=== PATIENT | male | born 1950 | race Caucasian/White ===

== ENCOUNTER 2016-08-05 11:50 | Inpatient (IN) | payer MEDICARE ==
[~2016-08-05] VITALS: Ht 180.3 cm; Wt 86.6 kg
[~2016-08-05 11:50] MED LIST: ASPI-496 PO; BUME2TAB PO; CARV3.122 PO; CITA20TA9 PO; DIGO125T10 PO; GABA300C10 PO; GEMF600T3 PO; LINA5TAB PO; LOSA25TA5 PO; OMEP40CA6 PO; PIOG30TA4 PO; SPIR25TA3 PO
[2016-08-05] MEDS ORDERED: SODIUM CHLORIDE FLUSH 10ML SYR IVF ONE (12:30)
[2016-08-05 13:17] LABS: ASPARTATE AMINO TRANSFERASE 20 U/L (15-37); BLOOD UREA NITROGEN 25 mg/dL (7-18)
[2016-08-05 13:21] LABS: IS PT STATUS REG ER OR PRE ER? YES
[2016-08-05] MEDS ORDERED: SODIUM CHLORIDE 0.9% 1,000 ML IV ONE (13:35)
[2016-08-05] MEDS ORDERED: NALOXONE 0.4 MG/ML, 1ML ONE (13:47)
[2016-08-05 13:49] LABS: ABG COLLECTION SITE LEFT RADIAL; COLLATERAL CIRCULATION TESTING NORMAL
[2016-08-05] MEDS ORDERED: NALOXONE 0.4 MG/ML, 1ML IVPush ONE (14:00)
[2016-08-05] MEDS ORDERED: BISACODYL 10 MG SUPP PR PRN (14:30)
[2016-08-05] MEDS ORDERED: ONDANSETRON 2MG/ML, 2ML IVP PRN (14:30)
[2016-08-05 14:34] LABS: DAU SCREEN DISCLAIMER
[2016-08-05 16:14] VITALS: BP 129/84
[2016-08-05] MEDS: SODIUM CHLORIDE 0.9% 1,000 ML IV SCH (17:06)
[2016-08-05] MEDS: INSULIN REGULAR 100 UNITS/ML, 3ML VIAL SQ-INSULIN SCH ×2 (17:32→20:50)
[2016-08-05] MEDS: HEPARIN 5,000 UNITS/ML, 1ML SQ SCH (17:32)
[2016-08-05] MEDS: ASPIRIN 81 MG TABLET EC PO SCH (17:47)
[2016-08-05 17:51] VITALS: BP 129/84
[2016-08-05 19:50] VITALS: BP 108/57
[2016-08-06] MEDS: HEPARIN 5,000 UNITS/ML, 1ML SQ SCH ×3 (00:30→17:01)
[2016-08-06 01:23] VITALS: BP 128/88
[2016-08-06] MEDS: SODIUM CHLORIDE 0.9% 1,000 ML IV SCH ×2 (02:00→11:32)
[2016-08-06 06:04] LABS: BLOOD UREA NITROGEN 23 mg/dL (7-18)
[2016-08-06 06:50] VITALS: BP 129/54
[2016-08-06] MEDS ORDERED: MAGNESIUM SULFATE PMX 2GM/50ML 50 ML IV ONE (08:30)
[2016-08-06] MEDS: LOSARTAN 25MG TABLET PO SCH (09:00)
[2016-08-06] MEDS: CARVEDILOL 3.125 MG TABLET PO SCH ×2 (09:00→21:37)
[2016-08-06] MEDS ORDERED: CARVEDILOL 3.125 MG TABLET PO SCH (09:00)
[2016-08-06] MEDS: DIGOXIN 0.125 MG TABLET PO SCH (09:00)
[2016-08-06] MEDS: INSULIN REGULAR 100 UNITS/ML, 3ML VIAL SQ-INSULIN SCH ×4 (09:26→21:41)
[2016-08-06] MEDS ORDERED: SODIUM BICARBONATE 4.2%, 5ML ONE (09:57)
[2016-08-06] MEDS ORDERED: LIDOCAINE 1%, 20ML ONE (09:57)
[2016-08-06 10:27] LABS: IS PT STATUS REG ER OR PRE ER? NO
[2016-08-06 11:34] LABS: CYTOLOGY BODY FLUID RECD INTO PATHOLOGY; CYTOLOGY BODY FLUID SOURCE CEREBROSPINAL FLUID
[2016-08-06 11:46] LABS: GLUCOSE, CSF 91 mg/dL (40-80)
[2016-08-06 13:38] VITALS: BP 117/75
[2016-08-06 19:38] VITALS: BP 104/65
[2016-08-07] MEDS: SODIUM CHLORIDE 0.9% 1,000 ML IV SCH (00:10)
[2016-08-07 02:00] VITALS: BP 147/84
[2016-08-07] MEDS: HEPARIN 5,000 UNITS/ML, 1ML SQ SCH ×3 (04:14→21:44)
[2016-08-07 05:47] LABS: BLOOD UREA NITROGEN 17 mg/dL (7-18)
[2016-08-07 06:28] LABS: HIV 1&2 ANTIBODY SCREEN Nonreactive (Nonreactive); HIV-1 p24 ANTIGEN Nonreactive (Nonreactive)
[2016-08-07 06:31] VITALS: BP 155/88
[2016-08-07] MEDS: INSULIN REGULAR 100 UNITS/ML, 3ML VIAL SQ-INSULIN SCH ×4 (07:00→21:00)
[2016-08-07] MEDS ORDERED: OMNIPAQUE 350 MG/ML, 100ML BOTTLE ONE (08:25)
[2016-08-07 09:10] LABS: HEPATITIS C VIRUS ANTIBODY Reactive (Nonreactive)
[2016-08-07] MEDS: DIGOXIN 0.125 MG TABLET PO SCH (10:30)
[2016-08-07] MEDS: ASPIRIN 81 MG TABLET EC PO SCH (10:30)
[2016-08-07] MEDS: CARVEDILOL 6.25 MG TABLET PO SCH ×2 (10:32→21:44)
[2016-08-07] MEDS: LOSARTAN 25MG TABLET PO SCH (10:32)
[2016-08-07 13:01] VITALS: BP 93/66
[2016-08-07 18:24] VITALS: BP 130/80
[2016-08-08 00:33] VITALS: BP 143/88
[2016-08-08] MEDS: HEPARIN 5,000 UNITS/ML, 1ML SQ SCH ×3 (04:11→20:26)
[2016-08-08 05:29] LABS: BLOOD UREA NITROGEN 19 mg/dL (7-18)
[2016-08-08 06:43] VITALS: BP 107/62
[2016-08-08] MEDS: INSULIN REGULAR 100 UNITS/ML, 3ML VIAL SQ-INSULIN SCH ×4 (07:00→20:27)
[2016-08-08 10:29] VITALS: BP 98/60
[2016-08-08] MEDS: ASPIRIN 81 MG TABLET EC PO SCH (11:00)
[2016-08-08] MEDS: LOSARTAN 25MG TABLET PO SCH (11:00)
[2016-08-08] MEDS: DIGOXIN 0.125 MG TABLET PO SCH (11:00)
[2016-08-08] MEDS: CARVEDILOL 6.25 MG TABLET PO SCH ×2 (11:00→20:28)
[2016-08-08 13:10] VITALS: BP 102/67
[2016-08-08 19:56] VITALS: BP 97/66
[2016-08-08 20:29] VITALS: BP 105/61
[2016-08-08] MEDS ORDERED: CARVEDILOL 6.25 MG TABLET PO SCH (21:00)
[2016-08-09 01:04] VITALS: BP 108/69
[2016-08-09] MEDS: HEPARIN 5,000 UNITS/ML, 1ML SQ SCH ×3 (05:37→21:00)
[2016-08-09] MEDS: INSULIN REGULAR 100 UNITS/ML, 3ML VIAL SQ-INSULIN SCH ×4 (07:00→21:01)
[2016-08-09 07:54] VITALS: BP 101/62
[2016-08-09] MEDS: CARVEDILOL 6.25 MG TABLET PO SCH ×2 (08:12→21:00)
[2016-08-09] MEDS: LOSARTAN 25MG TABLET PO SCH (08:13)
[2016-08-09] MEDS: ASPIRIN 81 MG TABLET EC PO SCH (08:13)
[2016-08-09] MEDS: OMEPRAZOLE 20 MG CAPSULE.DR PO SCH (08:13)
[2016-08-09] MEDS: DIGOXIN 0.125 MG TABLET PO SCH (08:14)
[2016-08-09] MEDS ORDERED: LOSARTAN 25MG TABLET PO SCH (09:00)
[2016-08-09] MEDS ORDERED: PNEUMOCOCCAL 23 VACCINE IM-VACC ONE (11:00)
[2016-08-09 14:05] VITALS: BP 102/63
[2016-08-09 18:06] LABS: HERPES SIMPLEX VIRUS-1 DNA PCR Negative (Negative); HERPES SIMPLEX VIRUS-2 DNA PCR Negative (Negative)
[2016-08-09 19:35] VITALS: BP 114/71
[2016-08-10 01:52] VITALS: BP 103/60
[2016-08-10] MEDS: HEPARIN 5,000 UNITS/ML, 1ML SQ SCH ×3 (05:07→21:46)
[2016-08-10] MEDS: INSULIN REGULAR 100 UNITS/ML, 3ML VIAL SQ-INSULIN SCH ×4 (07:00→21:46)
[2016-08-10 07:21] VITALS: BP 104/66
[2016-08-10] MEDS: OMEPRAZOLE 20 MG CAPSULE.DR PO SCH (09:24)
[2016-08-10] MEDS: ASPIRIN 81 MG TABLET EC PO SCH (09:24)
[2016-08-10] MEDS: DIGOXIN 0.125 MG TABLET PO SCH (09:24)
[2016-08-10] MEDS: LOSARTAN 25MG TABLET PO SCH (09:24)
[2016-08-10] MEDS: CARVEDILOL 6.25 MG TABLET PO SCH ×2 (09:24→21:46)
[2016-08-10 12:05] VITALS: BP 97/58
[2016-08-10 20:07] VITALS: BP 109/66
[2016-08-11 02:16] VITALS: BP 122/62
[2016-08-11] MEDS: HEPARIN 5,000 UNITS/ML, 1ML SQ SCH (05:09)
[2016-08-11 06:35] VITALS: BP 104/66
[2016-08-11] MEDS: INSULIN REGULAR 100 UNITS/ML, 3ML VIAL SQ-INSULIN SCH ×2 (07:00→12:13)
[2016-08-11] MEDS: ASPIRIN 81 MG TABLET EC PO SCH (09:08)
[2016-08-11] MEDS: LOSARTAN 25MG TABLET PO SCH (09:09)
[2016-08-11] MEDS: CARVEDILOL 6.25 MG TABLET PO SCH (09:09)
[2016-08-11 09:10] VITALS: BP 94/66
[2016-08-11] MEDS: OMEPRAZOLE 20 MG CAPSULE.DR PO SCH ×2 (09:10→10:10)
[2016-08-11] MEDS: DIGOXIN 0.125 MG TABLET PO SCH (09:10)
== END 2016-08-11 13:27 | DRG 682 ==
LOC: ED 13:30 → EDIP 14:29 → 4WST 16:00 → 4EST 08-06 03:50
PROC: 0T9B70Z Drainage of Bladder with Drainage Device, Via Natural or Artificial Opening (ICD-10-PCS; 2016-08-05)
PROC: 009U3ZX Drainage of Spinal Canal, Percutaneous Approach, Diagnostic (ICD-10-PCS; principal; 2016-08-06)
PROC: B01B1ZZ Fluoroscopy of Spinal Cord using Low Osmolar Contrast (ICD-10-PCS; 2016-08-06)
DX: N17.0 Acute kidney failure with tubular necrosis (principal); G93.40 Encephalopathy, unspecified; I48.92 Unspecified atrial flutter; E87.2 Acidosis; I50.22 Chronic systolic (congestive) heart failure; I13.0 Hypertensive heart and chronic kidney disease with heart failure and stage 1 through stage 4 chronic kidney disease, or unspecified chronic kidney disease; I42.6 Alcoholic cardiomyopathy; F10.20 Alcohol dependence, uncomplicated; E11.22 Type 2 diabetes mellitus with diabetic chronic kidney disease; E11.65 Type 2 diabetes mellitus with hyperglycemia; E78.00 Pure hypercholesterolemia, unspecified; E78.5 Hyperlipidemia, unspecified; E86.0 Dehydration; F10.21 Alcohol dependence, in remission; I48.2 Chronic atrial fibrillation; I35.9 Nonrheumatic aortic valve disorder, unspecified; I25.10 Atherosclerotic heart disease of native coronary artery without angina pectoris; N18.3 Chronic kidney disease, stage 3 (moderate); N40.0 Benign prostatic hyperplasia without lower urinary tract symptoms; Z83.3 Family history of diabetes mellitus; Z85.820 Personal history of malignant melanoma of skin; Z87.891 Personal history of nicotine dependence; Z95.2 Presence of prosthetic heart valve; Z99.3 Dependence on wheelchair
CPT/HCPCS: 36415; 36600; 62270; 70450; 70470; 71010; 80048; 80053; 80074; 80162; 80307; 81003; 82140; 82550; 82607; 82746; 82803; 82945; 82962; 83036; 83605; 83880; 84145; 84157; 84439; 84443; 84484; 85025; 85610; 85730; 86592; 86703; 87040; 87070; 87075; 87102; 87205; 87521; 87529; 87899; 88108; 89051; 90732; 93005; 93306; 93880; 96361; 96374; J1644; J1815; J2310; J2405; J3490; Q9967; G0435; J3475; J7030

== ENCOUNTER → 2016-11-25 | Outpatient (CLI) | payer MEDICARE | END | disposition home or self-care (01) | LOC: CFH 09:37 | PROVIDERS: ATTEND Nurse Practitioner Family | DX: I12.9 Hypertensive chronic kidney disease with stage 1 through stage 4 chronic kidney disease, or unspecified chronic kidney disease (principal); N18.3 Chronic kidney disease, stage 3 (moderate); I48.2 Chronic atrial fibrillation | CPT/HCPCS: 76770 ==

== ENCOUNTER 2018-08-24 15:39 | Outpatient (CLI) | payer MEDICARE ==
[~2018-08-24 15:39] MED LIST changes: -GEMF600T3 PO; +GEMF600T8 PO; +LOSA25TA25 PO; -LOSA25TA5 PO; -SPIR25TA3 PO; +SPIR25TA5 PO
[2018-08-24 16:19] LABS: ANION GAP 8 mmol/L (5-15); CHLORIDE 108 mmol/L (98-107); CREATININE 1.83 mg/dL (0.7-1.3)
== END 2018-08-24 23:59 | disposition home or self-care (01) ==
LOC: LAB 15:39
PROVIDERS: ATTEND Nurse Practitioner Family
DX: I42.8 Other cardiomyopathies (principal)
CPT/HCPCS: 36415; 80048

== ENCOUNTER → 2018-09-15 | Outpatient (CLI) | payer MEDICARE ==
[2018-09-15 13:01] LABS: ALBUMIN 4.7 g/dL (3.4-5.0)
[2018-09-15 13:02] LABS: ANION GAP 10 mmol/L (5-15); CALCIUM 9.9 mg/dL (8.5-10.1); CHLORIDE 105 mmol/L (98-107); CREATININE 1.98 mg/dL (0.7-1.3)
== END | disposition home or self-care (01) ==
LOC: LAB 12:17
PROVIDERS: ATTEND Internal Medicine Nephrology
DX: N17.9 Acute kidney failure, unspecified (principal); N18.3 Chronic kidney disease, stage 3 (moderate); I42.8 Other cardiomyopathies
CPT/HCPCS: 36415; 80048; 82040; 82784; 83883; 83970; 84100; 84155; 84165; 86334

== ENCOUNTER 2019-02-15 16:23 | Outpatient (CLI) | payer MEDICARE ==
[~2019-02-15 16:23] MED LIST changes: -BUME2TAB PO; +BUME2TAB3 PO
[2019-02-15 17:05] LABS: ANION GAP 6 mmol/L (5-15); CALCIUM 9.1 mg/dL (8.5-10.1); CHLORIDE 109 mmol/L (98-107); CREATININE 1.59 mg/dL (0.7-1.3)
== END 2019-02-15 23:59 | disposition home or self-care (01) ==
LOC: LAB 16:23
PROVIDERS: ATTEND Nurse Practitioner Family
DX: I42.8 Other cardiomyopathies (principal); N17.9 Acute kidney failure, unspecified
CPT/HCPCS: 36415; 80048

== ENCOUNTER → 2019-04-28 | Outpatient (CLI) | payer MEDICARE ==
[~2019-04-28] MED LIST changes: +OMEP40CA42 PO; -OMEP40CA6 PO
[2019-04-28 11:57] LABS: ANION GAP 7 mmol/L (5-15); CALCIUM 8.8 mg/dL (8.5-10.1); CHLORIDE 105 mmol/L (98-107); CREATININE 1.38 mg/dL (0.7-1.3)
== END | disposition home or self-care (01) ==
LOC: LAB 11:22
PROVIDERS: ATTEND Nurse Practitioner Family
DX: I42.8 Other cardiomyopathies (principal)
CPT/HCPCS: 36415; 80048

== ENCOUNTER → 2019-06-13 | Outpatient (CLI) | payer MEDICARE ==
[~2019-06-13] MED LIST changes: -PIOG30TA4 PO; +PIOG30TA68 PO
[2019-06-13 08:31] LABS: BASOPHILS # (AUTO) 0.05 x10^3/uL (0-0.1); BASOPHILS % (AUTO) 1 % (0-1); EOSINOPHILS # (AUTO) 0.15 x10^3/uL (0-0.4); EOSINOPHILS % (AUTO) 2 % (1-7); LYMPHOCYTES # (AUTO) 1.41 x10^3/uL (1-3.4); LYMPHOCYTES % (AUTO) 20 % (22-44); MD NO; MEAN CORPUSCULAR HEMOGLOBIN 31.6 pg (27.5-34.5); MEAN CORPUSCULAR HGB CONC 33.2 g/dL (33.2-36.2); MEAN CORPUSCULAR VOLUME 95.2 fL (81-97); MEAN PLATELET VOLUME 6.7 fL (7.4-10.4); MONOCYTES # (AUTO) 0.52 x10^3/uL (0.2-0.8); MONOCYTES % (AUTO) 7 % (2-9); NEUTROPHILS # (AUTO) 4.91 x10^3/uL (1.8-6.8); NEUTROPHILS % (AUTO) 70 % (42-75); PLATELET COUNT 189 x10^3/uL (130-400); RED BLOOD COUNT 5.21 x10^6/uL (4.38-5.82)
[2019-06-13 08:43] LABS: ALANINE AMINOTRANSFERASE 15 U/L (12-78); ALBUMIN 3.3 g/dL (3.4-5.0); ANION GAP 6 mmol/L (5-15); CALCIUM 8.5 mg/dL (8.5-10.1); CHLORIDE 107 mmol/L (98-107)
[2019-06-13 08:46] LABS: ALKALINE PHOSPHATASE 95 U/L (45-117); BILIRUBIN,TOTAL 0.7 mg/dL (0.2-1.0); CHOL/HDL RATIO 3.3; CHOLESTEROL, TOTAL 180 mg/dL (140-239); CREATININE 1.38 mg/dL (0.7-1.3); HDL CHOL % 30 % (26-37); HDL CHOLESTEROL (DIRECT) 54 mg/dL (40-60); LDL CHOLESTEROL,CALCULATED 112 mg/dL (54-169); LDL/HDL RATIO 2.1 (0.5-3.0); TRIGLYCERIDES 68 mg/dL (50-200); VLDL CHOLESTEROL 14 mg/dL (0-25)
== END | disposition home or self-care (01) ==
LOC: LAB 08:11
PROVIDERS: ATTEND Nurse Practitioner Family
DX: I42.8 Other cardiomyopathies (principal); I48.4 Atypical atrial flutter; I48.19 Other persistent atrial fibrillation; I47.2 Ventricular tachycardia; I48.21 Permanent atrial fibrillation; I48.0 Paroxysmal atrial fibrillation; I48.20 Chronic atrial fibrillation, unspecified; E11.9 Type 2 diabetes mellitus without complications
CPT/HCPCS: 36415; 80053; 80061; 80162; 82043; 82570; 83036; 83721; 85025

== ENCOUNTER 2019-07-18 12:20 | Outpatient (CLI) | payer MEDICARE, MEDICAID ==
[2019-07-18 12:48] LABS: INTERNATIONAL NORMALIZED RATIO 1.05 (0.93-1.1); PROTHROMBIN TIME 11.1 Seconds (9.6-11.5)
== END 2019-07-18 23:59 | disposition home or self-care (01) ==
LOC: LAB 12:20
PROVIDERS: ATTEND Internal Medicine
DX: I48.19 Other persistent atrial fibrillation (principal)
CPT/HCPCS: 36415; 85610

== ENCOUNTER → 2019-07-21 | Outpatient (CLI) | payer MEDICARE, MEDICAID ==
[2019-07-21 15:48] LABS: INTERNATIONAL NORMALIZED RATIO 1.35 (0.93-1.1); PROTHROMBIN TIME 14.4 Seconds (9.6-11.5)
== END | disposition home or self-care (01) ==
LOC: LAB 15:19
PROVIDERS: ATTEND Internal Medicine
DX: I48.19 Other persistent atrial fibrillation (principal)
CPT/HCPCS: 36415; 85610

== ENCOUNTER → 2019-08-01 | Outpatient (CLI) | payer MEDICAID, MEDICARE ==
[2019-08-01 15:26] LABS: INTERNATIONAL NORMALIZED RATIO 1.34 (0.93-1.1); PROTHROMBIN TIME 14.2 Seconds (9.6-11.5)
== END | disposition home or self-care (01) ==
LOC: LAB 14:44
PROVIDERS: ATTEND Internal Medicine
DX: I48.19 Other persistent atrial fibrillation (principal)
CPT/HCPCS: 36415; 85610

== ENCOUNTER → 2019-08-08 | Outpatient (CLI) | payer MEDICARE, MEDICAID ==
[2019-08-08 13:08] LABS: INTERNATIONAL NORMALIZED RATIO 2.18 (0.93-1.1); PROTHROMBIN TIME 23.3 Seconds (9.6-11.5)
== END | disposition home or self-care (01) ==
LOC: CFH 12:43
PROVIDERS: ATTEND Internal Medicine
DX: I48.0 Paroxysmal atrial fibrillation (principal); I47.2 Ventricular tachycardia; I48.4 Atypical atrial flutter; I48.21 Permanent atrial fibrillation; I48.20 Chronic atrial fibrillation, unspecified
CPT/HCPCS: 36415; 80162; 85610

== ENCOUNTER → 2019-09-03 | Outpatient (CLI) | payer MEDICARE, MEDICAID ==
[2019-09-03 09:27] LABS: INTERNATIONAL NORMALIZED RATIO 1.87 (0.93-1.1); PROTHROMBIN TIME 19.9 Seconds (9.6-11.5)
== END | disposition home or self-care (01) ==
LOC: LAB 08:52
PROVIDERS: ATTEND Internal Medicine
DX: I48.19 Other persistent atrial fibrillation (principal)
CPT/HCPCS: 36415; 85610

== ENCOUNTER → 2019-09-23 | Outpatient (CLI) | payer MEDICARE, MEDICAID ==
[2019-09-23 11:24] LABS: INTERNATIONAL NORMALIZED RATIO 1.32 (0.93-1.1)
== END | disposition home or self-care (01) ==
LOC: LAB 11:01
PROVIDERS: ATTEND Internal Medicine
DX: I48.19 Other persistent atrial fibrillation (principal)
CPT/HCPCS: 36415; 85610

== ENCOUNTER → 2019-11-23 | Outpatient (CLI) | payer MEDICARE, MEDICAID ==
[2019-11-23 10:48] LABS: INTERNATIONAL NORMALIZED RATIO 1.52 (0.93-1.1); PROTHROMBIN TIME 16.2 Seconds (9.6-11.5)
== END | disposition home or self-care (01) ==
LOC: LAB 10:18
PROVIDERS: ATTEND Internal Medicine
DX: I48.19 Other persistent atrial fibrillation (principal)
CPT/HCPCS: 36415; 85610

== ENCOUNTER → 2019-11-24 | Outpatient (CLI) | payer MEDICARE, MEDICAID ==
[2019-11-24 11:51] LABS: BASOPHILS # (AUTO) 0.05 x10^3/uL (0-0.1); BASOPHILS % (AUTO) 1 % (0-1); EOSINOPHILS # (AUTO) 0.11 x10^3/uL (0-0.4); EOSINOPHILS % (AUTO) 2 % (1-7); LYMPHOCYTES # (AUTO) 1.44 x10^3/uL (1-3.4); LYMPHOCYTES % (AUTO) 19 % (22-44); MD NO; MEAN CORPUSCULAR HEMOGLOBIN 30.8 pg (27.5-34.5); MEAN CORPUSCULAR HGB CONC 33.7 g/dL (33.2-36.2); MEAN CORPUSCULAR VOLUME 91.4 fL (81-97); MONOCYTES # (AUTO) 0.57 x10^3/uL (0.2-0.8); MONOCYTES % (AUTO) 8 % (2-9); NEUTROPHILS # (AUTO) 5.34 x10^3/uL (1.8-6.8); NEUTROPHILS % (AUTO) 71 % (42-75); PLATELET COUNT 157 x10^3/uL (130-400); RED BLOOD COUNT 5.67 x10^6/uL (4.38-5.82); RED CELL DISTRIBUTION WIDTH 13.6 % (9.4-14.8)
[2019-11-24 11:56] LABS: CALCIUM 9.1 mg/dL (8.5-10.1)
[2019-11-24 12:07] LABS: ALANINE AMINOTRANSFERASE 15 U/L (12-78); ALBUMIN 3.8 g/dL (3.4-5.0); ANION GAP 9 mmol/L (5-15); CHLORIDE 108 mmol/L (98-107); CREATININE 1.44 mg/dL (0.7-1.3)
[2019-11-24 12:10] LABS: ALKALINE PHOSPHATASE 89 U/L (45-117); BILIRUBIN,TOTAL 0.8 mg/dL (0.2-1.0); TOTAL PROTEIN 7.2 g/dL (6.4-8.2)
[2019-11-24 12:17] LABS: MICROSCOPIC NOT IND
[2019-11-24 12:26] LABS: CREATININE,URINE RANDOM 98.8 mg/dL
== END | disposition home or self-care (01) ==
LOC: LAB 11:28
PROVIDERS: ATTEND Nurse Practitioner
DX: I12.9 Hypertensive chronic kidney disease with stage 1 through stage 4 chronic kidney disease, or unspecified chronic kidney disease (principal); N18.3 Chronic kidney disease, stage 3 (moderate); E55.9 Vitamin D deficiency, unspecified; I48.91 Unspecified atrial fibrillation; Z86.39 Personal history of other endocrine, nutritional and metabolic disease
CPT/HCPCS: 36415; 80053; 81003; 82306; 82310; 82570; 83036; 83970; 84156; 85025

== ENCOUNTER → 2019-12-01 | Outpatient (CLI) | payer MEDICARE, MEDICAID ==
[2019-12-01 12:21] LABS: INTERNATIONAL NORMALIZED RATIO 1.59 (0.93-1.1); PROTHROMBIN TIME 16.9 Seconds (9.6-11.5)
== END | disposition home or self-care (01) ==
LOC: LAB 12:00
PROVIDERS: ATTEND Internal Medicine
DX: I48.19 Other persistent atrial fibrillation (principal)
CPT/HCPCS: 36415; 85610

== ENCOUNTER → 2019-12-08 | Outpatient (CLI) | payer MEDICARE, MEDICAID ==
[2019-12-08 14:36] LABS: INTERNATIONAL NORMALIZED RATIO 1.88 (0.93-1.1); PROTHROMBIN TIME 19.5 Seconds (9.6-11.5)
== END | disposition home or self-care (01) ==
LOC: LAB 14:12
PROVIDERS: ATTEND Internal Medicine
DX: I48.19 Other persistent atrial fibrillation (principal)
CPT/HCPCS: 36415; 85610

== ENCOUNTER → 2019-12-13 | Outpatient (CLI) | payer MEDICARE, MEDICAID ==
[2019-12-13 12:51] LABS: INTERNATIONAL NORMALIZED RATIO 2.18 (0.93-1.1); PROTHROMBIN TIME 22.6 Seconds (9.6-11.5)
== END | disposition home or self-care (01) ==
LOC: LAB 12:30
PROVIDERS: ATTEND Internal Medicine
DX: I48.19 Other persistent atrial fibrillation (principal)
CPT/HCPCS: 36415; 85610

== ENCOUNTER → 2019-12-21 | Outpatient (CLI) | payer MEDICARE, MEDICAID ==
[2019-12-21 12:28] LABS: INTERNATIONAL NORMALIZED RATIO 2.61 (0.93-1.1); PROTHROMBIN TIME 27.1 Seconds (9.6-11.5)
== END | disposition home or self-care (01) ==
LOC: LAB 12:08
PROVIDERS: ATTEND Internal Medicine
DX: I48.19 Other persistent atrial fibrillation (principal)
CPT/HCPCS: 36415; 85610

== ENCOUNTER → 2020-01-04 | Outpatient (CLI) | payer MEDICARE, MEDICAID ==
[2020-01-04 12:16] LABS: INTERNATIONAL NORMALIZED RATIO 3.35 (0.93-1.1); PROTHROMBIN TIME 34.9 Seconds (9.6-11.5)
== END | disposition home or self-care (01) ==
LOC: LAB 11:43
PROVIDERS: ATTEND Internal Medicine
DX: I48.19 Other persistent atrial fibrillation (principal)
CPT/HCPCS: 36415; 85610

== ENCOUNTER → 2020-01-13 | Outpatient (CLI) | payer MEDICARE, MEDICAID ==
[2020-01-13 12:31] LABS: INTERNATIONAL NORMALIZED RATIO 3.72 (0.93-1.1); PROTHROMBIN TIME 38.8 Seconds (9.6-11.5)
== END | disposition home or self-care (01) ==
LOC: LAB 12:04
PROVIDERS: ATTEND Internal Medicine
DX: I48.19 Other persistent atrial fibrillation (principal)
CPT/HCPCS: 36415; 85610

== ENCOUNTER 2020-01-19 12:16 | Inpatient (IN) | payer MEDICAID, MEDICARE ==
[~2020-01-19] VITALS: Ht 175.3 cm; Wt 65.0 kg
[~2020-01-19 12:16] MED LIST changes: -DULA1.5P SQ; -ESOM40CA48 PO; -METO-93 PO; -WARF2TAB99 PO
--- NOTE | 2020-01-19 12:30 | NUR ---
PT TO ROOM FROM TRIAGE. DR BLAKE AT BEDSIDE. PT CAME TO [facility] FOR LAB DRAW FOR COUMADIN. "I FELT BAD COMING HERE AND I THREW UP, I WAS SOB COMING HERE" PT PRESENTED TO TRIAGE, RAPID HR.
[2020-01-19] MEDS ORDERED: DILTIAZEM 5 MG/ML, 5ML ONE (12:33)
[2020-01-19] MEDS ORDERED: MIDAZOLAM 1 MG/ML, 2ML ONE (12:40)
[2020-01-19] MEDS ORDERED: DILTIAZEM 5 MG/ML, 5ML IVPush ONE (12:47)
--- NOTE | 2020-01-19 12:56 | NUR ---
PORTABLE CXR COMPLETED.
--- NOTE | 2020-01-19 12:58 | NUR ---
1233 CAROTID MASSAGE PERFOMED BY DR HARRIS. HR DECREASED SOME. 1236 6MG ADENOSIN GIVEN. NO CHANGE IN HR OF 210. 1238 12 MG ADENOSIN GIVEN. SLOWED DOWN 155 AND INCREASED TO 210. 1243 PT GIVEN 20 MG DILTIAZEM OVER 2 MIN. HR 176 156/90. HR DECREASED TO 100'S.
[2020-01-19] MEDS ORDERED: ADENOSINE 6 MG/2 ML IVPush ONE ×2 (13:00)
[2020-01-19] MEDS ORDERED: SODIUM CHLORIDE FLUSH 10ML SYR IVF ONE (13:00)
--- NOTE | 2020-01-19 13:08 | NUR ---
REPEAT EKG COMPLETED
[2020-01-19 13:10] LABS: ALBUMIN 3.8 g/dL (3.4-5.0); ANION GAP 13 mmol/L (5-15); CALCIUM 9.6 mg/dL (8.5-10.1); CHLORIDE 102 mmol/L (98-107); CREATININE 1.72 mg/dL (0.7-1.3)
[2020-01-19 13:13] LABS: TROPONIN I 0.017 ng/mL (0.000-0.045)
[2020-01-19] MEDS ORDERED: DULA1.5P SQ (13:23)
--- NOTE | 2020-01-19 13:25 | NUR ---
MED REC PARTIALLY COMPLETED. PT CONT TO DENY CHEST PAIN. DENIES SOB AT THIS TIME. SR WITH FREQUENT PVC'S PER MONITOR NOTED. WAITING FOR TEST RESULTS.
[2020-01-19] MEDS ORDERED: SODIUM CHLORIDE 0.9% 1,000ML IVBOLUS ONE (13:30)
[2020-01-19 13:33] LABS: MEAN CORPUSCULAR HEMOGLOBIN 30.3 pg (27.5-34.5); MEAN CORPUSCULAR HGB CONC 32.9 g/dL (33.2-36.2); MEAN PLATELET VOLUME 7.7 fL (7.4-10.4); PLATELET COUNT 166 x10^3/uL (130-400); RED BLOOD COUNT 6.35 x10^6/uL (4.38-5.82); RED CELL DISTRIBUTION WIDTH 13.6 % (9.4-14.8)
[2020-01-19 14:05] LABS: MD YES
[2020-01-19 14:06] LABS: <PLATELET ESTIMATE> ADEQUATE; <PLT MORPHOLOGY> NORMAL PLT MORPH; <RBC MORPHOLOGY> NORMAL; LYMPH#(MANUAL) 1.85 x10^3/uL (1-3.4); LYMPHS% (MANUAL) 17 % (22-44); MONOS#(MANUAL) 1.09 x10^3/uL (0.3-2.7); MONOS% (MANUAL) 10 % (2-9); SEG#(MANUAL) 7.96 x10^3/uL (1.8-6.8); SEGS% (MANUAL) 73 % (42-75)
--- NOTE | 2020-01-19 14:20 | NUR ---
BREAK RN: PT RESTING IN ROOM. 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 AFIB NOTED. VS STABLE. CALL LIGHT IN PLACE. WILL CONTINUE TO MONITOR WHILE PRIMARY RN IS ON BREAK.
[2020-01-19 14:30] LABS: INTERNATIONAL NORMALIZED RATIO 1.75 (0.93-1.1); PROTHROMBIN TIME 18.1 Seconds (9.6-11.5)
[2020-01-19] MEDS ORDERED: SODIUM CHLORIDE FLUSH 10ML SYR IVF PRN (14:30)
[2020-01-19] MEDS ORDERED: ACETAMINOPHEN 325 MG TABLET PO PRN (14:30)
[2020-01-19] MEDS ORDERED: DILTIAZEM 125 MG in SODIUM CHLORIDE 0.9% 100 ML IV SCH (14:30)
[2020-01-19] MEDS ORDERED: ONDANSETRON 2MG/ML, 2ML IVPush PRN (14:30)
--- NOTE | 2020-01-19 14:57 | NUR ---
REPORT CALLED TO KUMAR CLEMENTE. POC DISCUSSED. PT TO BE TRANSPORTED TO [facility] VIA [facility].
[2020-01-19 15:00] LABS: TROPONIN I 0.038 ng/mL (0.000-0.045)
[2020-01-19 15:21] VITALS: BP 135/83
[2020-01-19] MEDS ORDERED: MAGNESIUM SULFATE PMX 2GM/50ML 50 ML ONE (15:43)
[2020-01-19] MEDS: DILTIAZEM 125 MG in SODIUM CHLORIDE 0.9% 100 ML IV SCH (15:48)
[2020-01-19] MEDS ORDERED: GABAPENTIN 300 MG CAPSULE PO PRN (16:00)
[2020-01-19] MEDS ORDERED: DEXTROSE 4 GM TAB.CHEW PO PRN (16:00)
[2020-01-19] MEDS ORDERED: GLUCAGON 1 MG IM PRN (16:00)
[2020-01-19] MEDS ORDERED: MAGNESIUM SULFATE PMX 2GM/50ML 50 ML IV ONE (16:00)
[2020-01-19] MEDS: INSULIN LISPRO 100 UNITS/ML, PEN SQ-INSULIN SCH ×2 (16:00→21:16)
[2020-01-19] MEDS ORDERED: DEXTROSE 50%, 50ML SYRINGE IVPush PRN (16:00)
[2020-01-19] MEDS ORDERED: WARF2TAB99 PO (16:45)
[2020-01-19] MEDS ORDERED: ESOM40CA48 PO (16:45)
[2020-01-19] MEDS ORDERED: WARFARIN 2 MG TABLET PO-COUM ONE (18:00)
[2020-01-19 19:12] VITALS: BP 115/69
[2020-01-19] MEDS: SODIUM CHLORIDE FLUSH 10ML SYR IVF SCH (20:27)
[2020-01-19 20:49] LABS: TROPONIN I 0.063 ng/mL (0.000-0.045)
[2020-01-20] MEDS: CALCIUM CARBONATE 500 MG TAB.CHEW PO PRN ×3 (00:55→06:10)
[2020-01-20 00:56] VITALS: BP 166/95
[2020-01-20] MEDS: DILTIAZEM 125 MG in SODIUM CHLORIDE 0.9% 100 ML IV SCH ×2 (02:57→14:45)
[2020-01-20 05:32] LABS: BASOPHILS # (AUTO) 0.05 x10^3/uL (0-0.1); BASOPHILS % (AUTO) 1 % (0-1); EOSINOPHILS # (AUTO) 0.11 x10^3/uL (0-0.4); EOSINOPHILS % (AUTO) 1 % (1-7); LYMPHOCYTES # (AUTO) 1.15 x10^3/uL (1-3.4); LYMPHOCYTES % (AUTO) 15 % (22-44); MEAN CORPUSCULAR HEMOGLOBIN 30.3 pg (27.5-34.5); MEAN CORPUSCULAR HGB CONC 32.7 g/dL (33.2-36.2); MEAN PLATELET VOLUME 7.2 fL (7.4-10.4); MONOCYTES # (AUTO) 0.57 x10^3/uL (0.2-0.8); MONOCYTES % (AUTO) 7 % (2-9); NEUTROPHILS # (AUTO) 5.85 x10^3/uL (1.8-6.8); NEUTROPHILS % (AUTO) 76 % (42-75); PLATELET COUNT 131 x10^3/uL (130-400); RED BLOOD COUNT 5.74 x10^6/uL (4.38-5.82); RED CELL DISTRIBUTION WIDTH 14.1 % (9.4-14.8)
[2020-01-20 05:36] LABS: ALBUMIN 3.2 g/dL (3.4-5.0); CHLORIDE 104 mmol/L (98-107)
[2020-01-20 05:51] LABS: ALANINE AMINOTRANSFERASE 12 U/L (12-78); ALKALINE PHOSPHATASE 81 U/L (45-117); ANION GAP 11 mmol/L (5-15); CREATININE 1.24 mg/dL (0.7-1.3); TOTAL PROTEIN 6.7 g/dL (6.4-8.2)
[2020-01-20 05:56] LABS: INTERNATIONAL NORMALIZED RATIO 1.49 (0.93-1.1); PROTHROMBIN TIME 15.4 Seconds (9.6-11.5)
[2020-01-20 07:00] LABS: MD NO
[2020-01-20] MEDS: INSULIN LISPRO 100 UNITS/ML, PEN SQ-INSULIN SCH ×4 (08:14→22:01)
[2020-01-20] MEDS: SODIUM CHLORIDE FLUSH 10ML SYR IVF SCH ×2 (08:15→20:43)
[2020-01-20 10:03] VITALS: BP 164/103
[2020-01-20] MEDS: PROMETHAZINE 25 MG/ML, 1ML IM PRN ×2 (10:15→20:48)
[2020-01-20] MEDS ORDERED: METOCLOPRAMIDE 5 MG/ML, 2ML IVPush PRN (11:00)
[2020-01-20 11:13] LABS: CHOL/HDL RATIO 3.3; LDL/HDL RATIO 1.7 (0.5-3.0)
[2020-01-20] MEDS: OMEPRAZOLE 20 MG CAPSULE.DR PO SCH ×2 (11:17→22:01)
[2020-01-20] MEDS: LOSARTAN 25MG TABLET PO SCH (11:18)
[2020-01-20 11:37] VITALS: BP 139/88
[2020-01-20 14:10] VITALS: BP 149/81
[2020-01-20 17:15] VITALS: BP 132/80
[2020-01-20] MEDS: METOPROLOL TARTRATE 25 MG TAB PO SCH (17:16)
[2020-01-20] MEDS ORDERED: WARFARIN 2 MG TABLET PO-COUM ONE (18:00)
[2020-01-20 19:08] VITALS: BP 142/69
[2020-01-21 01:11] VITALS: BP 119/64
[2020-01-21] MEDS: DILTIAZEM 125 MG in SODIUM CHLORIDE 0.9% 100 ML IV SCH (04:13)
[2020-01-21] MEDS: METOPROLOL TARTRATE 25 MG TAB PO SCH ×2 (05:22→18:09)
[2020-01-21 05:24] VITALS: BP 129/61
[2020-01-21 05:56] LABS: INTERNATIONAL NORMALIZED RATIO 1.96 (0.93-1.1); PROTHROMBIN TIME 20.3 Seconds (9.6-11.5)
[2020-01-21] MEDS: OMEPRAZOLE 20 MG CAPSULE.DR PO SCH (06:40)
[2020-01-21 06:56] VITALS: BP 103/58
[2020-01-21] MEDS: INSULIN LISPRO 100 UNITS/ML, PEN SQ-INSULIN SCH ×4 (09:11→22:49)
[2020-01-21] MEDS: SODIUM CHLORIDE FLUSH 10ML SYR IVF SCH ×2 (09:12→22:50)
[2020-01-21] MEDS: LOSARTAN 25MG TABLET PO SCH (09:13)
[2020-01-21 12:53] VITALS: BP 132/87
[2020-01-21] MEDS: PROMETHAZINE 25 MG/ML, 1ML IM PRN (16:10)
[2020-01-21] MEDS ORDERED: WARFARIN 2.5 MG TABLET PO-COUM ONE (18:00)
[2020-01-21 20:28] VITALS: BP 115/63
[2020-01-22 01:39] VITALS: BP 129/80
[2020-01-22 05:49] LABS: INTERNATIONAL NORMALIZED RATIO 1.94 (0.93-1.1); PROTHROMBIN TIME 20.1 Seconds (9.6-11.5)
[2020-01-22] MEDS: METOPROLOL TARTRATE 25 MG TAB PO SCH (05:58)
[2020-01-22 07:00] VITALS: BP 100/61
[2020-01-22 08:31] LABS: MEAN CORPUSCULAR HEMOGLOBIN 30.1 pg (27.5-34.5); MEAN CORPUSCULAR HGB CONC 32.2 g/dL (33.2-36.2); MEAN PLATELET VOLUME 7.7 fL (7.4-10.4); PLATELET COUNT 149 x10^3/uL (130-400); RED CELL DISTRIBUTION WIDTH 14.3 % (9.4-14.8)
[2020-01-22 08:42] LABS: ALANINE AMINOTRANSFERASE 14 U/L (12-78); ALBUMIN 2.9 g/dL (3.4-5.0); ANION GAP 6 mmol/L (5-15); CALCIUM 8.8 mg/dL (8.5-10.1); CHLORIDE 102 mmol/L (98-107); CREATININE 1.28 mg/dL (0.7-1.3)
[2020-01-22 08:44] LABS: ALKALINE PHOSPHATASE 82 U/L (45-117); TOTAL PROTEIN 6.4 g/dL (6.4-8.2)
[2020-01-22 08:59] LABS: BASOPHILS # (AUTO) 0.04 x10^3/uL (0-0.1); BASOPHILS % (AUTO) 0 % (0-1); EOSINOPHILS # (AUTO) 0.25 x10^3/uL (0-0.4); EOSINOPHILS % (AUTO) 2 % (1-7); LYMPHOCYTES # (AUTO) 1.24 x10^3/uL (1-3.4); LYMPHOCYTES % (AUTO) 10 % (22-44); MD SCAN; MONOCYTES # (AUTO) 0.76 x10^3/uL (0.2-0.8); MONOCYTES % (AUTO) 6 % (2-9); NEUTROPHILS # (AUTO) 9.81 x10^3/uL (1.8-6.8); NEUTROPHILS % (AUTO) 81 % (42-75)
[2020-01-22] MEDS: SODIUM CHLORIDE FLUSH 10ML SYR IVF SCH (08:59)
[2020-01-22] MEDS: INSULIN LISPRO 100 UNITS/ML, PEN SQ-INSULIN SCH ×3 (08:59→17:55)
[2020-01-22] MEDS ORDERED: OMEPRAZOLE 20 MG CAPSULE.DR PO SCH (09:00)
[2020-01-22] MEDS: LOSARTAN 25MG TABLET PO SCH (09:00)
[2020-01-22 12:18] VITALS: BP 131/88
[2020-01-22 12:37] LABS: MICROSCOPIC AUTO
[2020-01-22] MEDS ORDERED: METO-93 PO (14:18)
[2020-01-22] MEDS ORDERED: WARFARIN 3 MG TABLET PO-COUM ONE (18:00)
[2020-01-23] MEDS ORDERED: METOPROLOL SUCCINATE 50 MG TAB.ER.24H PO SCH (06:00)
[2020-01-23] MEDS ORDERED: SPIRONOLACTONE 25 MG TABLET PO SCH (09:00)
== END 2020-01-22 18:16 | disposition home health service (06) | DRG 308 ==
LOC: ED 12:43 → SUATTDRO 14:21 → EDIP 14:23 → 5SO 15:09
PROVIDERS: ADMIT Internal Medicine; ATTEND Internal Medicine
PROC: 5A2204Z Restoration of Cardiac Rhythm, Single (ICD-10-PCS; principal; 2020-01-19)
DX: I47.1 Supraventricular tachycardia (principal); I50.43 Acute on chronic combined systolic (congestive) and diastolic (congestive) heart failure; E43 Unspecified severe protein-calorie malnutrition; I13.0 Hypertensive heart and chronic kidney disease with heart failure and stage 1 through stage 4 chronic kidney disease, or unspecified chronic kidney disease; D68.69 Other thrombophilia; I42.6 Alcoholic cardiomyopathy; E51.2 Wernicke's encephalopathy; I48.20 Chronic atrial fibrillation, unspecified; I48.92 Unspecified atrial flutter; J44.9 Chronic obstructive pulmonary disease, unspecified; N18.3 Chronic kidney disease, stage 3 (moderate); D75.1 Secondary polycythemia; E11.22 Type 2 diabetes mellitus with diabetic chronic kidney disease; E11.65 Type 2 diabetes mellitus with hyperglycemia; E78.00 Pure hypercholesterolemia, unspecified; E78.5 Hyperlipidemia, unspecified; E87.5 Hyperkalemia; F10.20 Alcohol dependence, uncomplicated; F12.90 Cannabis use, unspecified, uncomplicated; F17.210 Nicotine dependence, cigarettes, uncomplicated; F32.9 Major depressive disorder, single episode, unspecified; I49.3 Ventricular premature depolarization; Z79.01 Long term (current) use of anticoagulants; Z91.14 Patient's other noncompliance with medication regimen; Z95.3 Presence of xenogenic heart valve; Z99.3 Dependence on wheelchair; Z68.21 Body mass index [BMI] 21.0-21.9, adult
CPT/HCPCS: 36415; 71045; 80048; 80053; 80061; 80162; 81001; 82040; 82962; 83690; 83735; 84100; 84443; 84484; 85025; 85610; 85730; 93005; 93306; 96361; 96374; 99291; G0378; J0153; J2405; J2550; J1815; J3475; J7030

== ENCOUNTER → 2020-01-19 | Outpatient (CLI) | payer MEDICARE, MEDICAID ==
[~2020-01-19] MED LIST changes: +DULA1.5P SQ; +ESOM40CA48 PO; +METO-93 PO; +WARF2TAB99 PO
[2020-01-19 12:29] LABS: INTERNATIONAL NORMALIZED RATIO 1.77 (0.93-1.1); PROTHROMBIN TIME 18.3 Seconds (9.6-11.5)
== END | disposition home or self-care (01) ==
LOC: LAB 11:58
PROVIDERS: ATTEND Nurse Practitioner Family
DX: Z51.81 Encounter for therapeutic drug level monitoring (principal); Z79.01 Long term (current) use of anticoagulants
CPT/HCPCS: 36415; 85610

== ENCOUNTER → 2020-03-26 | Outpatient (CLI) | payer MEDICARE, MEDICAID ==
[~2020-03-26] MED LIST changes: +DULA1.5P SQ; +ESOM40CA48 PO; +METO-93 PO; +WARF2TAB99 PO
[2020-03-26 15:53] LABS: INTERNATIONAL NORMALIZED RATIO 2.34 (0.93-1.1); PROTHROMBIN TIME 24.6 Seconds (9.6-11.5)
== END | disposition home or self-care (01) ==
LOC: LAB 15:07
PROVIDERS: ATTEND Nurse Practitioner Family
DX: I48.91 Unspecified atrial fibrillation (principal); Z79.01 Long term (current) use of anticoagulants
CPT/HCPCS: 36415; 85610

== ENCOUNTER → 2020-04-14 | Outpatient (CLI) | payer MEDICARE, MEDICAID ==
[2020-04-14 14:53] LABS: ALANINE AMINOTRANSFERASE 16 U/L (12-78); ALBUMIN 4.3 g/dL (3.4-5.0); ANION GAP 7 mmol/L (5-15); CALCIUM 9.5 mg/dL (8.5-10.1); CHLORIDE 106 mmol/L (98-107); CREATININE 1.68 mg/dL (0.7-1.3)
[2020-04-14 14:56] LABS: ALKALINE PHOSPHATASE 100 U/L (45-117); BILIRUBIN,TOTAL 1.4 mg/dL (0.2-1.0); TOTAL PROTEIN 8.3 g/dL (6.4-8.2)
== END | disposition home or self-care (01) ==
LOC: LAB 13:59
PROVIDERS: ATTEND Family Medicine
DX: N18.30 Chronic kidney disease, stage 3 unspecified (principal)
CPT/HCPCS: 36415; 80053

== ENCOUNTER → 2020-04-18 | Outpatient (CLI) | payer MEDICARE, MEDICAID ==
[2020-04-18 13:49] LABS: INTERNATIONAL NORMALIZED RATIO 2.44 (0.93-1.1); PROTHROMBIN TIME 25.6 Seconds (9.6-11.5)
== END | disposition home or self-care (01) ==
LOC: LAB 13:18
PROVIDERS: ATTEND Nurse Practitioner Family
DX: Z79.01 Long term (current) use of anticoagulants (principal)
CPT/HCPCS: 36415; 85610

== ENCOUNTER → 2020-05-14 | Outpatient (CLI) | payer MEDICARE, MEDICAID ==
[2020-05-14 15:17] LABS: INTERNATIONAL NORMALIZED RATIO 2.9 (0.93-1.1); PROTHROMBIN TIME 30.4 Seconds (9.6-11.5)
== END | disposition home or self-care (01) ==
LOC: LAB 14:20
PROVIDERS: ATTEND Nurse Practitioner Family
DX: Z51.81 Encounter for therapeutic drug level monitoring (principal); Z79.01 Long term (current) use of anticoagulants
CPT/HCPCS: 36415; 85610

== ENCOUNTER → 2020-06-12 | Outpatient (CLI) | payer MEDICARE, MEDICAID ==
[~2020-06-12] MED LIST changes: +GEMF-31 PO; -GEMF600T8 PO
[2020-06-12 12:14] LABS: BASOPHILS % (AUTO) 1 % (0-1); EOSINOPHILS % (AUTO) 2 % (1-7); LYMPHOCYTES % (AUTO) 21 % (22-44); MEAN CORPUSCULAR HEMOGLOBIN 30.8 pg (27.5-34.5); MEAN CORPUSCULAR HGB CONC 33.6 g/dL (33.2-36.2); MEAN PLATELET VOLUME 7.6 fL (7.4-10.4); MONOCYTES % (AUTO) 7 % (2-9); NEUTROPHILS % (AUTO) 70 % (42-75); PLATELET COUNT 166 x10^3/uL (130-400); RED CELL DISTRIBUTION WIDTH 14.3 % (9.4-14.8)
[2020-06-12 12:18] LABS: CALCIUM 9.1 mg/dL (8.5-10.1); CHLORIDE 108 mmol/L (98-107)
[2020-06-12 12:22] LABS: ALBUMIN 3.9 g/dL (3.4-5.0); ANION GAP 6 mmol/L (5-15); CREATININE 1.52 mg/dL (0.7-1.3)
[2020-06-12 12:34] LABS: CALCIUM 9.1 mg/dL (8.5-10.1)
[2020-06-12 12:35] LABS: MD SCAN
== END | disposition home or self-care (01) ==
LOC: LAB 11:20
PROVIDERS: ATTEND Internal Medicine Nephrology
DX: I12.9 Hypertensive chronic kidney disease with stage 1 through stage 4 chronic kidney disease, or unspecified chronic kidney disease (principal); E55.9 Vitamin D deficiency, unspecified; N18.30 Chronic kidney disease, stage 3 unspecified; I48.91 Unspecified atrial fibrillation; Z86.39 Personal history of other endocrine, nutritional and metabolic disease; Z79.899 Other long term (current) drug therapy
CPT/HCPCS: 36415; 80069; 82043; 82306; 82310; 83970; 84550; 85025

== ENCOUNTER 2020-07-06 11:22 | Outpatient (CLI) | payer MEDICARE, MEDICAID ==
[2020-07-06 11:57] LABS: INTERNATIONAL NORMALIZED RATIO 3.56 (0.93-1.1); PROTHROMBIN TIME 37.2 Seconds (9.6-11.5)
[2020-07-06 11:58] LABS: BASOPHILS % (AUTO) 1 % (0-1); EOSINOPHILS % (AUTO) 2 % (1-7); LYMPHOCYTES % (AUTO) 20 % (22-44); MEAN CORPUSCULAR HEMOGLOBIN 30.8 pg (27.5-34.5); MEAN CORPUSCULAR HGB CONC 33.8 g/dL (33.2-36.2); MEAN PLATELET VOLUME 7.8 fL (7.4-10.4); MONOCYTES % (AUTO) 6 % (2-9); NEUTROPHILS % (AUTO) 71 % (42-75); PLATELET COUNT 140 x10^3/uL (130-400); RED BLOOD COUNT 6.07 x10^6/uL (4.38-5.82); RED CELL DISTRIBUTION WIDTH 15.2 % (9.4-14.8)
[2020-07-06 11:59] LABS: ALBUMIN 3.9 g/dL (3.4-5.0); ANION GAP 7 mmol/L (5-15); CALCIUM 9.5 mg/dL (8.5-10.1); CHLORIDE 105 mmol/L (98-107)
[2020-07-06 12:00] LABS: MD NO
[2020-07-06 12:02] LABS: ALANINE AMINOTRANSFERASE 22 U/L (12-78); ALKALINE PHOSPHATASE 88 U/L (45-117); BILIRUBIN,TOTAL 0.9 mg/dL (0.2-1.0); CREATININE 1.49 mg/dL (0.7-1.3); TOTAL PROTEIN 7.5 g/dL (6.4-8.2)
== END 2020-07-06 23:59 | disposition home or self-care (01) ==
LOC: LAB 11:22
PROVIDERS: ATTEND Nurse Practitioner
DX: I12.9 Hypertensive chronic kidney disease with stage 1 through stage 4 chronic kidney disease, or unspecified chronic kidney disease (principal); N18.30 Chronic kidney disease, stage 3 unspecified; E55.9 Vitamin D deficiency, unspecified; I48.91 Unspecified atrial fibrillation; Z86.39 Personal history of other endocrine, nutritional and metabolic disease
CPT/HCPCS: 36415; 80053; 85025; 85610

== ENCOUNTER 2020-07-23 11:56 | Outpatient (CLI) | payer MEDICARE, MEDICAID ==
[2020-07-23 12:44] LABS: ALBUMIN 3.8 g/dL (3.4-5.0); ANION GAP 8 mmol/L (5-15); CALCIUM 9.1 mg/dL (8.5-10.1); CHLORIDE 104 mmol/L (98-107)
[2020-07-23 12:50] LABS: ALANINE AMINOTRANSFERASE 15 U/L (12-78); ALKALINE PHOSPHATASE 90 U/L (45-117); BILIRUBIN,TOTAL 1.2 mg/dL (0.2-1.0); TOTAL PROTEIN 7.5 g/dL (6.4-8.2)
[2020-07-23 16:29] LABS: INTERNATIONAL NORMALIZED RATIO 1.1 (0.93-1.1); PROTHROMBIN TIME 11.8 Seconds (9.6-11.5)
== END 2020-07-23 23:59 | disposition home or self-care (01) ==
LOC: LAB 11:56
PROVIDERS: ATTEND Family Medicine
DX: Z12.5 Encounter for screening for malignant neoplasm of prostate (principal); I48.91 Unspecified atrial fibrillation; E11.9 Type 2 diabetes mellitus without complications; Z79.01 Long term (current) use of anticoagulants; F04 Amnestic disorder due to known physiological condition
CPT/HCPCS: 80053; 82043; 82306; 82570; 83036; 84153; 85610; G0103

== ENCOUNTER → 2020-07-31 | Outpatient (CLI) | payer MEDICARE, MEDICAID ==
[2020-07-31 13:25] LABS: INTERNATIONAL NORMALIZED RATIO 2.45 (0.93-1.1); PROTHROMBIN TIME 25.8 Seconds (9.6-11.5)
== END | disposition home or self-care (01) ==
LOC: LAB 12:41
PROVIDERS: ATTEND Nurse Practitioner Family
DX: I48.91 Unspecified atrial fibrillation (principal); Z79.01 Long term (current) use of anticoagulants
CPT/HCPCS: 36415; 85610

== ENCOUNTER → 2020-08-14 | Outpatient (CLI) | payer MEDICARE, MEDICAID ==
[2020-08-14 15:08] LABS: INTERNATIONAL NORMALIZED RATIO 3.9 (0.93-1.1); PROTHROMBIN TIME 40.6 Seconds (9.6-11.5)
== END | disposition home or self-care (01) ==
LOC: LAB 14:38
PROVIDERS: ATTEND Nurse Practitioner Family
DX: I48.91 Unspecified atrial fibrillation (principal); Z79.01 Long term (current) use of anticoagulants
CPT/HCPCS: 36415; 85610

== ENCOUNTER → 2020-08-27 | Outpatient (CLI) | payer MEDICARE, MEDICAID ==
[2020-08-27 12:58] LABS: INTERNATIONAL NORMALIZED RATIO 3.17 (0.93-1.1); PROTHROMBIN TIME 33.2 Seconds (9.6-11.5)
== END | disposition home or self-care (01) ==
LOC: LAB 11:56
PROVIDERS: ATTEND Nurse Practitioner Family
DX: I48.91 Unspecified atrial fibrillation (principal); Z79.01 Long term (current) use of anticoagulants
CPT/HCPCS: 36415; 85610

== ENCOUNTER → 2020-09-04 | Outpatient (CLI) | payer MEDICARE, MEDICAID ==
[2020-09-04 11:35] LABS: INTERNATIONAL NORMALIZED RATIO 2.77 (0.93-1.1); PROTHROMBIN TIME 29.1 Seconds (9.6-11.5)
== END | disposition home or self-care (01) ==
LOC: LAB 10:45
PROVIDERS: ATTEND Nurse Practitioner Family
DX: I48.91 Unspecified atrial fibrillation (principal); Z79.01 Long term (current) use of anticoagulants
CPT/HCPCS: 36415; 85610

== ENCOUNTER → 2020-09-17 | Outpatient (CLI) | payer MEDICARE, MEDICAID ==
[2020-09-17 16:17] LABS: INTERNATIONAL NORMALIZED RATIO 3.5 (0.93-1.1); PROTHROMBIN TIME 36.5 Seconds (9.6-11.5)
== END | disposition home or self-care (01) ==
LOC: LAB 14:34
PROVIDERS: ATTEND Nurse Practitioner Family
DX: I48.91 Unspecified atrial fibrillation (principal); Z79.01 Long term (current) use of anticoagulants
CPT/HCPCS: 36415; 85610

== ENCOUNTER 2020-09-24 11:47 | Outpatient (CLI) | payer MEDICARE, MEDICAID ==
[~2020-09-24 11:47] MED LIST changes: -OMEP40CA42 PO; +OMEP40CA8 PO
[2020-09-24 12:50] LABS: ALBUMIN 3.7 g/dL (3.4-5.0); ANION GAP 4 mmol/L (5-15); CALCIUM 8.9 mg/dL (8.5-10.1); CHLORIDE 107 mmol/L (98-107)
[2020-09-24 12:51] LABS: INTERNATIONAL NORMALIZED RATIO 3.25 (0.93-1.1)
[2020-09-24 12:56] LABS: ALANINE AMINOTRANSFERASE 20 U/L (12-78); ALKALINE PHOSPHATASE 75 U/L (45-117); BILIRUBIN,TOTAL 0.9 mg/dL (0.2-1.0); CREATININE 1.39 mg/dL (0.7-1.3); TOTAL PROTEIN 7.2 g/dL (6.4-8.2)
== END 2020-09-24 23:59 | disposition home or self-care (01) ==
LOC: LAB 11:47
PROVIDERS: ATTEND Family Medicine
DX: Z12.5 Encounter for screening for malignant neoplasm of prostate (principal); I48.91 Unspecified atrial fibrillation; E11.9 Type 2 diabetes mellitus without complications; Z79.01 Long term (current) use of anticoagulants; I10 Essential (primary) hypertension; Z79.899 Other long term (current) drug therapy
CPT/HCPCS: 36415; 80053; 80061; 82043; 82306; 82570; 83036; 84153; 85610; G0103

== ENCOUNTER 2020-10-22 11:13 | Outpatient (CLI) | payer MEDICARE, MEDICAID ==
[2020-10-22 11:44] LABS: INTERNATIONAL NORMALIZED RATIO 3.01 (0.93-1.1); PROTHROMBIN TIME 31.5 Seconds (9.6-11.5)
== END 2020-10-22 23:59 | disposition home or self-care (01) ==
LOC: LAB 11:13
PROVIDERS: ATTEND Nurse Practitioner Family
DX: I48.92 Unspecified atrial flutter (principal); Z79.01 Long term (current) use of anticoagulants
CPT/HCPCS: 36415; 85610

== ENCOUNTER → 2020-11-05 | Outpatient (CLI) | payer MEDICARE, MEDICAID ==
[2020-11-05 08:33] LABS: INTERNATIONAL NORMALIZED RATIO 2.5 (0.93-1.1); PROTHROMBIN TIME 25.6 Seconds (9.6-11.5)
== END | disposition home or self-care (01) ==
LOC: LAB 07:57
PROVIDERS: ATTEND Nurse Practitioner Family
DX: I48.92 Unspecified atrial flutter (principal); Z79.01 Long term (current) use of anticoagulants
CPT/HCPCS: 36415; 85610

== ENCOUNTER → 2020-11-09 | Outpatient (CLI) | payer MEDICARE, MEDICAID ==
[2020-11-09 09:52] LABS: INTERNATIONAL NORMALIZED RATIO 1.98 (0.93-1.1); PROTHROMBIN TIME 20.5 Seconds (9.6-11.5)
== END | disposition home or self-care (01) ==
LOC: LAB 09:11
PROVIDERS: ATTEND Nurse Practitioner Family
DX: I48.92 Unspecified atrial flutter (principal); Z79.01 Long term (current) use of anticoagulants
CPT/HCPCS: 36415; 85610

== ENCOUNTER → 2020-11-26 | Outpatient (CLI) | payer MEDICARE, MEDICAID ==
[2020-11-26 12:43] LABS: INTERNATIONAL NORMALIZED RATIO 1.86 (0.93-1.1); PROTHROMBIN TIME 19.3 Seconds (9.6-11.5)
== END | disposition home or self-care (01) ==
LOC: LAB 12:02
PROVIDERS: ATTEND Nurse Practitioner Family
DX: I48.92 Unspecified atrial flutter (principal); Z79.01 Long term (current) use of anticoagulants
CPT/HCPCS: 36415; 85610

== ENCOUNTER 2020-12-18 09:30 | Outpatient (CLI) | payer MEDICARE, MEDICAID ==
[2020-12-18 10:04] LABS: INTERNATIONAL NORMALIZED RATIO 1.66 (0.93-1.1); PROTHROMBIN TIME 17.3 Seconds (9.6-11.5)
== END 2020-12-18 23:59 | disposition home or self-care (01) ==
LOC: LAB 09:30
PROVIDERS: ATTEND Nurse Practitioner Family
DX: I48.92 Unspecified atrial flutter (principal); Z79.01 Long term (current) use of anticoagulants
CPT/HCPCS: 36415; 85610

== ENCOUNTER 2020-12-24 12:19 | Outpatient (CLI) | payer MEDICARE, MEDICAID ==
[2020-12-24 12:54] LABS: ANION GAP 4 mmol/L (5-15); CALCIUM 8.3 mg/dL (8.5-10.1); CHLORIDE 108 mmol/L (98-107); CREATININE 1.18 mg/dL (0.7-1.3)
[2020-12-27 13:01] LABS: INTERNATIONAL NORMALIZED RATIO 2.08 (0.93-1.1); PROTHROMBIN TIME 21.5 Seconds (9.6-11.5)
== END 2020-12-24 23:59 | disposition home or self-care (01) ==
LOC: LAB 12:19
PROVIDERS: ATTEND Nurse Practitioner Family
DX: I48.19 Other persistent atrial fibrillation (principal); I42.8 Other cardiomyopathies; I48.92 Unspecified atrial flutter; Z79.01 Long term (current) use of anticoagulants
CPT/HCPCS: 36415; 80048; 80162; 85610

== ENCOUNTER 2021-01-11 11:05 | Outpatient (CLI) | payer MEDICARE, MEDICAID ==
[2021-01-11 11:46] LABS: INTERNATIONAL NORMALIZED RATIO 2.39 (0.93-1.1); PROTHROMBIN TIME 24.5 Seconds (9.6-11.5)
== END 2021-01-11 23:59 | disposition home or self-care (01) ==
LOC: LAB 11:05
PROVIDERS: ATTEND Nurse Practitioner Family
DX: I48.92 Unspecified atrial flutter (principal); Z79.01 Long term (current) use of anticoagulants
CPT/HCPCS: 36415; 85610